=== PATIENT | female | born 1955 | race African-American/Black ===

== ENCOUNTER 2022-04-10 15:38 | Outpatient (CLI) | payer OTHER ==
[2022-04-10 17:18] LABS: BASOPHILS % (AUTO) 0.3 %; EOSINOPHILS # (AUTO) 0.2 10^3/uL (0.0-0.7); EOSINOPHILS % (AUTO) 1.6 %; HGB - HEMOGLOBIN 11.5 g/dL (12.0-16.0); LYMPHOCYTES # (AUTO) 2.5 10^3/uL (1.5-3.5); LYMPHOCYTES % (AUTO) 21.4 %; MEAN CORPUSCULAR HEMOGLOBIN 30.9 pg (27.0-31.0); MEAN CORPUSCULAR HGB CONC 31.9 g/dL (32.0-36.0); MEAN CORPUSCULAR VOLUME 96.8 fL (81.0-99.0); MEAN PLATELET VOLUME 10.7 fL (7.9-10.8); MONOCYTES # (AUTO) 0.9 10^3/uL (0.0-1.0); MONOCYTES % (AUTO) 7.5 %; NEUTROPHILS % (AUTO) 68.9 %; PLT - PLATELET COUNT 284 10^3/uL (130-450); RED BLOOD COUNT 3.72 10^6/uL (4.20-5.40); RED CELL DISTRIBUTION WIDTH 12.5 % (12.0-15.0); WHITE BLOOD COUNT 11.6 x10^3/uL (4.8-10.8)
[2022-04-10 17:26] LABS: ALBUMIN 3.9 g/dL (3.2-5.5); ALBUMIN/GLOBULIN RATIO 1.3 (1.0-2.2); BILIRUBIN,TOTAL 0.5 mg/dL (0.2-1.0); CALCIUM 9.5 mg/dL (8.5-10.3); CREATININE 1.3 mg/dL (0.4-1.0); POTASSIUM 3.4 mmol/L (3.5-5.0)
[2022-04-10 17:44] LABS: THYROID STIMULATING HORMONE 0.88 uIU/mL (0.34-5.60)
[2022-04-10 21:35] LABS: CREATININE,URINE 131.3 mg/dL; MICROALBUM/CREATININE RATIO,UR 14.5 ug/mg (<30.0); MICROALBUMIN,URINE 1.9 mg/dL (0-300.0)
[2022-04-10 21:49] LABS: ESTIMATED AVERAGE GLUCOSE 157 mg/dL (70-100); HEMOGLOBIN A1c% 7.1 % (4.27-6.07)
== END 2022-04-10 15:39 | disposition home or self-care (01) ==
LOC: LAB.N 15:38
PROVIDERS: ATTEND Family Medicine
DX: I10 Essential (primary) hypertension (principal); I63.9 Cerebral infarction, unspecified; G62.9 Polyneuropathy, unspecified; E11.9 Type 2 diabetes mellitus without complications
CPT/HCPCS: 36415; 80053; 82043; 82570; 83036; 84443; 85025

== ENCOUNTER 2022-04-10 15:42 | Outpatient (CLI) | payer OTHER ==
--- NOTE | 2022-04-10 17:28 | XRAY Report ---
PROCEDURE: Shoulder 3 View LT INDICATIONS: FROZEN L SHOULDER TECHNIQUE: 3 views of the shoulder were acquired. COMPARISON: None. FINDINGS: Bones: No fractures or dislocations. No suspicious bony lesions. Visualized ribs appear intact. M ild, irregular joint osteoarthritis. Soft tissues: No suspicious soft tissue calcifications. IMPRESSION: Mild left acromioclavicular joint osteoarthritis. No acute osseous lesion. If symptoms and/or clinical concern for pathology persists, further assessme nt with advanced imaging (CT, MR, bone scan) should be considered. Reviewed by: Roselyn Marie MD, PhD on 04/10/2022 5:27 PM PDT Approved by: Roselyn Marie MD, PhD on 04/10/2022 5:27 PM PDT Station ID: [id number]
== END 2022-04-10 15:43 | disposition home or self-care (01) ==
LOC: DI.N 15:42
PROVIDERS: ATTEND Family Medicine
DX: M75.02 Adhesive capsulitis of left shoulder (principal); M19.012 Primary osteoarthritis, left shoulder; I10 Essential (primary) hypertension; E11.9 Type 2 diabetes mellitus without complications; I63.9 Cerebral infarction, unspecified; G62.9 Polyneuropathy, unspecified
CPT/HCPCS: 36415; 80053; 82043; 82570; 83036; 84443; 85025

== ENCOUNTER 2022-11-15 13:23 | Outpatient (CLI) | payer MEDICAID, OTHER ==
--- NOTE | 2022-11-16 09:27 | Mammography Report ---
BILATERAL DIGITAL SCREENING MAMMOGRAM 3D/2D: 11/15/2022 CLINICAL: Family history of breast cancer. Routine screening. Comparison is made to exams dated: 07/20/2010 mammogram, 07/28/2010 ultrasound, and 07/28/2010 mammogra m - [facility]. Both breasts are heterogeneously dense, which may obscure small masses (category c / 51-75% glandular tissue). There is a focal asymmetry in the left breast central to the nipple posterior depth. No other significant masses, calcifications, or other findings are seen in either breast. IMPRESSION: INCOMPLETE: NEEDS ADDITIONAL IMAGING EVALUATION The focal asymmetry in the left breast is indeterminate. Additional views with possible ultrasound a re recommended. Based on Tyrer-Cuzick model (a risk assessment model), the patient's lifetime risk is 20.3% and her 1 0 year risk is 10.9%. If a patient has an elevated risk, a more comprehensive evaluation should be co nsidered and/or a referral to a genetic counselor. The [place] [employer], [place] [employer], and NCCN Guidelines advise the consideration of Breast MRI as an adjunct to screening mammo graphy in patients whose "Lifetime risk to develop breast cancer" is 20% or higher. This exam was interpreted at Station ID: [id number]. NOTE: For mammograms, a report in lay terms will be sent to the patient. Approximately 15% of breast malignancies will not be visualized mammographically. In the management of a palpable breast mass, a negative mammogram must not discourage biopsy of a clinically suspicious lesion. Electronically Signed By: Angeles Ramos M.D. lk/:11/15/2022 17:13:13 ACR BI-RADS Category 0: Incomplete 3340F PARENCHYMAL PATTERN: (D) - The breast(s) demonstrate(s) heterogeneously dense fibroglandular parenchy ma. BI-RADS CATEGORY: (0) - 0 Mammo and [place] [id number] Immediate follow-up LATERALITY: (B)
== END 2022-11-15 13:24 | disposition home or self-care (01) ==
LOC: DI.N 13:23
PROVIDERS: ATTEND Family Medicine
DX: Z12.31 Encounter for screening mammogram for malignant neoplasm of breast (principal); Z80.3 Family history of malignant neoplasm of breast

== ENCOUNTER 2022-12-11 12:36 | Outpatient (CLI) | payer MEDICARE ==
--- NOTE | 2022-12-12 11:06 | Mammography Report ---
UNILATERAL LEFT DIGITAL DIAGNOSTIC MAMMOGRAM 3D/2D WITH SPOT COMPRESSION: 12/11/2022 CLINICAL: Patient returns today to evaluate an asymmetry in the left breast. Comparison is made to exams dated: 11/15/2022 mammogram, 07/28/2010 mammogram, and 07/20/2010 mammogram - [facility]. The left breast is heterogeneously dense, which may obscure small masses (category c / 51-75% glandul ar tissue). There is an oval mass in the left breast at 5 o'clock posterior depth. There also is an oval mass in the left breast at 5 o'clock posterior depth. No other significant masses or calcifications are seen in the breast. IMPRESSION: INCOMPLETE: NEEDS ADDITIONAL IMAGING EVALUATION The oval mass in the left breast at 5 o'clock posterior depth is consistent with a cyst, a solid mass , or a lymph node and is indeterminate. An ultrasound is recommended. The oval mass in the left breast at 5 o'clock posterior depth is consistent with a cyst, a solid mass , or a lymph node and is indeterminate. An ultrasound is recommended. Based on Tyrer-Cuzick model (a risk assessment model), the patient's lifetime risk is 20.3% and her 1 0 year risk is 10.9%. If a patient has an elevated risk, a more comprehensive evaluation should be co nsidered and/or a referral to a genetic counselor. The [employer] [employer], [employer], and NCCN Guidelines advise the consideration of Breast MRI as an adjunct to screening mammo graphy in patients whose "Lifetime risk to develop breast cancer" is 20% or higher. This exam was interpreted at Station ID: [id number]. NOTE: For mammograms, a report in lay terms will be sent to the patient. Approximately 15% of breast malignancies will not be visualized mammographically. In the management of a palpable breast mass, a negative mammogram must not discourage biopsy of a clinically suspicious lesion. Electronically Signed By: Cameron Miller M.D. acr/:12/11/2022 13:17:42 ACR BI-RADS Category 0: Incomplete 3340F PARENCHYMAL PATTERN: (A) - The breast(s) demonstrate(s) scattered fibroglandular densities. BI-RADS CATEGORY: (0) - 0 Ultrasound [id number] Immediate follow-up LATERALITY: (L)
--- NOTE | 2022-12-12 11:06 | Ultrasound Report ---
LIMITED ULTRASOUND OF LEFT BREAST: 12/11/2022 CLINICAL: Patient returns today to evaluate a focal asymmetry in the left breast. Comparison is made to exams dated: 07/20/2010 mammogram, 07/28/2010 mammogram, 07/28/2010 ultrasound, a nd 11/15/2022 mammogram - [facility]. Color flow ultrasound of the left breast 5 o'clock region was performed. Chopra scale images of the r eal-time examination were reviewed. There is a benign 1.4 cm x 0.9 cm x 0.4 cm normal lymph node in the left breast at 6 o'clock posterio r depth 5 cm from the nipple. This correlates with mammography findings. IMPRESSION: BENIGN There is no sonographic evidence of malignancy. The 1.4 cm x 0.9 cm x 0.4 cm normal lymph node in the left breast is consistent with a lymph node and is benign. A 1 year screening mammogram is recommended. This exam was interpreted at Station ID: [id number]. Electronically Signed By: Cameron Miller M.D. acr/penshama:12/11/2022 16:03:43 Ultrasound BI-RADS: 2 Benign BI-RADS CATEGORY: (2) - 2 RECOMMENDATION: (ANNUAL) - Recommend routine annual screening mammography. [id number] 1 year screening LATERALITY: (B)
== END 2022-12-11 12:37 | disposition home or self-care (01) ==
LOC: DI 12:36
PROVIDERS: ATTEND Family Medicine
DX: R59.0 Localized enlarged lymph nodes (principal)

== ENCOUNTER 2023-03-14 11:02 | Outpatient (CLI) | payer MEDICARE ==
[2023-03-14 17:49] LABS: BASOPHILS % (AUTO) 0.4 %; EOSINOPHILS # (AUTO) 0.2 10^3/uL (0.0-0.7); EOSINOPHILS % (AUTO) 2.2 %; HCT - HEMATOCRIT 38.2 % (37.0-47.0); HGB - HEMOGLOBIN 11.8 g/dL (12.0-16.0); LYMPHOCYTES # (AUTO) 1.9 10^3/uL (1.5-3.5); LYMPHOCYTES % (AUTO) 20.9 %; MEAN CORPUSCULAR HEMOGLOBIN 30.3 pg (27.0-31.0); MEAN CORPUSCULAR HGB CONC 30.9 g/dL (32.0-36.0); MEAN CORPUSCULAR VOLUME 98.2 fL (81.0-99.0); MEAN PLATELET VOLUME 11.4 fL (7.9-10.8); MONOCYTES # (AUTO) 0.7 10^3/uL (0.0-1.0); MONOCYTES % (AUTO) 7.5 %; NEUTROPHILS # (AUTO) 6.3 10^3/uL (1.5-6.6); NEUTROPHILS % (AUTO) 68.7 %; PLT - PLATELET COUNT 275 10^3/uL (130-450); RED BLOOD COUNT 3.89 10^6/uL (4.20-5.40); RED CELL DISTRIBUTION WIDTH 13.1 % (12.0-15.0); WHITE BLOOD COUNT 9.2 x10^3/uL (4.8-10.8)
[2023-03-14 18:14] LABS: % IRON SATURATION 14 % (20-50); ALBUMIN 3.8 g/dL (3.2-5.5); ALBUMIN/GLOBULIN RATIO 1.2 (1.0-2.2); ALKALINE PHOSPHATASE 153 IU/L (42-121); ALT ALANINE AMINOTRANSFERASE 52 IU/L (10-60); AST ASPARTATE AMINOTRANSFERASE 38 IU/L (10-42); BILIRUBIN,TOTAL 0.5 mg/dL (0.2-1.0); BUN - BLOOD UREA NITROGEN 13 mg/dL (6-20); CALCIUM 9.1 mg/dL (8.5-10.3); CARBON DIOXIDE - CO2 27 mmol/L (21-32); CHLORIDE 106 mmol/L (101-111); CHOLESTEROL 143 mg/dL; CREATININE 1.2 mg/dL (0.4-1.0); GFR - MDRD 54 (>89); GLUCOSE 109 mg/dL (70-100); HDL CHOLESTEROL 70 mg/dL; IRON 50 ug/dL (28-170); LDL CHOLESTEROL,CALCULATED 65 mg/dL; LDL/HDL RATIO 0.9 (<4.4); POTASSIUM 3.8 mmol/L (3.5-5.0); SODIUM 142 mmol/L (135-145); TOTAL IRON BINDING CAPACITY 357 ug/dL (250-450); TOTAL PROTEIN 6.9 g/dL (6.7-8.2); TRANSFERRIN 255 mg/dL (192-382); TRIGLYCERIDES 40 mg/dL; VLDL CHOLESTEROL 8 mg/dL
[2023-03-14 18:27] LABS: FERRITIN 35.3 ng/mL (11.0-306.8)
[2023-03-14 18:30] LABS: FOLATE 9.95 ng/mL (5.90 - >24.8)
[2023-03-14 20:12] LABS: ESTIMATED AVERAGE GLUCOSE 128 mg/dL (70-100); HEMOGLOBIN A1c% 6.1 % (4.27-6.07)
== END 2023-03-14 11:03 | disposition home or self-care (01) ==
LOC: LAB.N 11:02
PROVIDERS: ATTEND Family Medicine
DX: E11.9 Type 2 diabetes mellitus without complications (principal); R20.8 Other disturbances of skin sensation
CPT/HCPCS: 36415; 80053; 80061; 82607; 82728; 82746; 83036; 83540; 83721; 84466; 85025

== ENCOUNTER 2023-05-04 13:45 | Outpatient (CLI) | payer MEDICARE | END 2023-05-04 14:00 | disposition home or self-care (01) | LOC: LAB.N 13:45 | PROVIDERS: ATTEND Nurse Practitioner | DX: R30.0 Dysuria (principal) | CPT/HCPCS: 87077; 87086; 87181 ==

== ENCOUNTER 2023-06-13 13:36 | Outpatient (CLI) | payer MEDICARE ==
[2023-06-13 18:00] LABS: CALCIUM 9.2 mg/dL (8.5-10.3); CREATININE 1.3 mg/dL (0.6-1.3); POTASSIUM 3.8 mmol/L (3.5-4.5)
[2023-06-13 18:04] LABS: CREATININE,URINE 101.1 mg/dL; MICROALBUM/CREATININE RATIO,UR 12.9 ug/mg (<30.0); MICROALBUMIN,URINE 1.3 mg/dL
[2023-06-13 21:29] LABS: ESTIMATED AVERAGE GLUCOSE 131 mg/dL (70-100); HEMOGLOBIN A1c% 6.2 % (4.27-6.07)
== END 2023-06-13 13:37 | disposition home or self-care (01) ==
LOC: LAB.N 13:36
PROVIDERS: ATTEND Family Medicine
DX: E11.9 Type 2 diabetes mellitus without complications (principal)
CPT/HCPCS: 36415; 80048; 82043; 82570; 83036

== ENCOUNTER 2023-11-22 06:33 | Day surgery (SDC) | payer MEDICARE ==
[2023-11-22] MEDS: LACTATED RINGERS 1,000 ML IV ONE ×2 (06:41→07:53)
[2023-11-22] MEDS: KETOROLAC 0.45% OPHTH DROPS ONE (06:55)
[2023-11-22] MEDS: PROPARACAINE 0.5% OPHTH DROPS 15 ML ONE (06:55)
[2023-11-22] MEDS ORDERED: EPINEPHrine 1 MG/ML AMP ONE (06:55)
[2023-11-22] MEDS ORDERED: TIMOLOL 0.5% OPHTH DROPS ONE (06:56)
[2023-11-22] MEDS ORDERED: BRIMONIDINE 0.2% OPHTH DROPS 5 ML ONE (06:56)
[2023-11-22] MEDS ORDERED: TRIAMCIN/MOXIFLOX OPHTHALMIC 0.6 ML VIAL IO ONE (06:56)
[2023-11-22] MEDS ORDERED: BSS/LIDOCAINE/EPINEPHRINE 1 ML VIAL ONE (06:56)
[2023-11-22] MEDS: PHENYLEPHRINE 2.5% OPHTH 2 ML DROPS ONE (07:00)
--- NOTE | 2023-11-22 07:17 | ANESTHESIA ---
Pre-Anesthesia VS, & Labs - Diagnosis LEFT CATARACT - Procedure PE IOL OS Vital Signs: Temp Pulse Resp BP Pulse Ox O2 Flow Rate 36.4 C L 78 18 138/77 H 99 11/22/23 06:43 11/22/23 06:43 11/22/23 06:43 11/22/23 06:43 11/22/23 06:43 Height: 5 ft 6 in Weight (kg): 83.3 kg Body Mass Index: 29.6 BMI Classification: Overweight - Is Patient ?: No - Lab Results Current Lab Results: Laboratory Tests 11/22/23 07:13: POC Whole Bld Glucose 149 H Home Medications and Allergies Home Medications: Ambulatory Orders Insulin Glargine [Lantus Solostar] 22 units SUBQ HS 11/21/23 Insulin Lispro [Humalog Kwikpen U-100] 15 unit SUBQ TID 11/21/23 Liraglutide [Victoza 2-Kenroy] 0.6 mg SUBQ DAILY PM 11/21/23 Insulin Glargine [Lantus Solostar] 22 units SUBQ HS 11/21/23 Insulin Lispro [Humalog Kwikpen U-100] 15 unit SUBQ TID 11/21/23 Liraglutide [Victoza 2-Kenroy] 0.6 mg SUBQ DAILY PM 11/21/23 Allergies/Adverse Reactions: Allergies Allergy/AdvReac Type Severity Reaction Status Date / Time Penicillins Allergy Unknown Verified 02/24/15 18:57 Anes History & Medical History - Anesthetic History Anesthesia Complications: reports: No previous complications Family history of Anesthesia Complications: Denies Family history of Malignant Hyperthermia: Denies - Medical History Cardiovascular: reports: Hypertension Pulmonary: reports: None Gastrointestinal: reports: Cholelithiasis Urinary: reports: None Musculoskeletal: reports: None Endocrine/Autoimmune: reports: Type 2 diabetes Skin: reports: None Smoking Status: Never smoker - Surgical History General: reports: Cholecystectomy Gynecologic: reports: section, Hysterectomy Exam General: Alert Dental: WNL, Partials Upper (IN) Mouth Openin Fingerbreadth Neck Mobility: Normal Mallampati classification: II Thyromental Distance: 4-6 cm Plan Anesthesia Type: MAC Consent for Procedure(s) Verified and Reviewed: Yes Code Status: Attempt Resuscitation ASA classification: 3-Severe systemic disease Is this case an emergency?: No
[2023-11-22] MEDS ORDERED: MIDAZOLAM 2 MG/2 ML VIAL ONE (07:21)
[2023-11-22] MEDS: BRIMONIDINE 0.2% OPHTH DROPS 5 ML OPTH ONE (07:38)
[2023-11-22] MEDS: TIMOLOL 0.5% OPHTH DROPS OPTH ONE (07:39)
[2023-11-22] MEDS: BSS/LIDOCAINE/EPINEPHRINE 1 ML SYRINGE IO ONE (07:39)
[2023-11-22] MEDS: TRIAMCIN/MOXIFLOX OPHTHALMIC 0.6 ML VIAL IO ONE (07:39)
[2023-11-22] MEDS: EPINEPHrine 1 MG/ML AMP IR ONE (07:39)
[2023-11-22] MEDS: VANCOMYCIN OPHTH (TOPICAL) 10 MG/ML SYRINGE TOP ONE (07:39)
[2023-11-22] MEDS: PROPARACAINE 0.5% OPHTH DROPS 15 ML LEFTEYE ONE (07:39)
[2023-11-22 08:06] VITALS: BP 123/84; O2SAT 99
--- NOTE | 2023-11-22 08:06 | OPERATIVE REPORT ---
Operative Report - Other Other Information/Narrative: Date of Surgery: 11/22/23 Preop Dx: Visually significant cataract left eye. This was the first cataract surgery. Postop Dx: Same Procedure: Phacoemulsification with posterior chamber intraocular lens implant left eye Surgeon: Dr. Aj Hartman Anesthesia: Monitored anesthesia care Complications: None Operative Indications: This is a 68-year-old F with progressive vision loss in the left eye due to 4+ nuclear sclerotic, 1-2+ cortical, 2+ posterior subcapsular, and vacuolar cataract. Best corrected visual acuity was 20/800 with glare to light perception vision in the left eye. Indications for surgery were: - Overall decrease in vision - Difficulty seeing words on a computer screen - Difficulty reading - Difficulty seeing words, closed captions, or game scores on TV - Difficulty seeing street signs - Difficulty driving in low light or at night - Difficulty driving at night because of headlights from other vehicles - Difficulty with glare or bright lights in any situation - Difficulty tracking a golf ball The patient was consented at length concerning the risks and benefits of cataract surgery after which the patient expressed a desire to proceed with surgery. Operative Procedure: The patient was taken into OR#3 and placed under monitored anesthesia care. A surgical time-out was conducted confirming correct patient, correct procedure, and correct surgical site. The patient was given topical anesthesia and then prepped and draped in the usual sterile fashion. The eye was entered at the 6 and 3 oclock positions. Intracameral Shugarcaine was injected into the anterior chamber followed by a dispersive viscoelastic. A continuous-tear curvilinear capsulorhexis was performed with moderately poor red reflex. The nucleus was hydrodissected and phacoemulsified. This was a very large and very dense cataract requiring a significant amount of phaco power to remove it. There also appears to be zonular dehiscense nasally and once the lens was out a nasal rhexis radialization was noted. No vitreous presented, however. Cortical cleanup was not performed due to the questionable stability of the capsule. A cohesive viscoelastic was injected into the capsular bag and a 24.0 diopter intraocular lens was inserted into the bag and the IOL centered well. Infusion and aspiration were used to evacuate the viscoelastic materials from the eye. The wounds were hydrated and the eye inflated to physiologic pressure using balanced salt solution. Approximately 0.25ml of a mixture of triamcinolone and moxifloxacin was injected trans-sclerally into the vitreous in the inferotemporal quadrant using a 30 gauge cannula. An additional 0.25ml of a mixture of triamcinolone and moxifloxacin was injected subconjunctivally in the superior quadrant for infection and inflammation prophylaxis. Wound integrity was checked with Weck-Jaimee sponges. The patient was taken from the operating room in good condition and given post-op instructions.
--- NOTE | 2023-11-22 11:14 | ANESTHESIA POST OP EVALUATION ---
Anesthesia Post Eval - Post Anesthesia Eval Vitals: Last Vital Signs Temp 36.1 C L 11/22/23 08:05 Pulse 69 11/22/23 08:05 Resp 15 11/22/23 08:05 BP 123/84 H 11/22/23 08:05 Pulse Ox 99 11/22/23 08:05 O2 Flow Rate CV Function Including HR & BP: Stable Pain Control: Satisfactory Nausea & Vomiting: Negative Mental Status: Baseline Respiratory Status: Airway Patent Hydration Status: Satisfactory Anesthesia Complications: None
== END 2023-11-22 06:34 | disposition home or self-care (01) ==
LOC: SDS 06:33
PROVIDERS: ATTEND Ophthalmology
DX: H25.812 Combined forms of age-related cataract, left eye (principal); E11.36 Type 2 diabetes mellitus with diabetic cataract; Z79.85 Long-term (current) use of injectable non-insulin antidiabetic drugs; Z79.4 Long term (current) use of insulin
CPT/HCPCS: 66984; A9270; J3490; J7120

== ENCOUNTER 2023-12-25 14:12 | Outpatient (CLI) | payer MEDICARE ==
[2023-12-25 14:49] LABS: CREATININE 1.2 mg/dL (0.6-1.3); POTASSIUM 3.7 mmol/L (3.5-4.5)
[2023-12-25 15:50] LABS: CREATININE,URINE 223.1 mg/dL; MICROALBUM/CREATININE RATIO,UR 49.8 ug/mg (<30.0); MICROALBUMIN,URINE 11.1 mg/dL
[2023-12-25 21:29] LABS: ESTIMATED AVERAGE GLUCOSE 146 mg/dL (70-100); HEMOGLOBIN A1c% 6.7 % (4.27-6.07)
== END 2023-12-25 14:13 | disposition home or self-care (01) ==
LOC: LAB 14:12
PROVIDERS: ATTEND Family Medicine
DX: I10 Essential (primary) hypertension (principal); E11.3211 Type 2 diabetes mellitus with mild nonproliferative diabetic retinopathy with macular edema, right eye; I48.0 Paroxysmal atrial fibrillation; K21.9 Gastro-esophageal reflux disease without esophagitis
CPT/HCPCS: 36415; 80048; 82043; 82570; 83036

== ENCOUNTER 2024-01-08 08:00 | Outpatient (CLI) | payer MEDICARE | END 2024-01-08 23:59 | disposition home or self-care (01) | LOC: LAB.R 08:00 | PROVIDERS: ATTEND Podiatrist | DX: E11.622 Type 2 diabetes mellitus with other skin ulcer (principal) | CPT/HCPCS: 87070; 87205 ==

== ENCOUNTER 2024-01-08 14:30 | Outpatient (CLI) | payer MEDICARE ==
[2024-01-08 14:55] LABS: CRP - C-REACTIVE PROTEIN < 0.5 mg/dL (<0.5)
[2024-01-08 15:07] LABS: GLUCOSE 53 mg/dL (74-104)
[2024-01-08 16:02] LABS: BASOPHILS % (AUTO) 0.4 %; EOSINOPHILS # (AUTO) 0.2 10^3/uL (0.0-0.7); EOSINOPHILS % (AUTO) 2.1 %; HCT - HEMATOCRIT 38.8 % (37.0-47.0); HGB - HEMOGLOBIN 11.9 g/dL (12.0-16.0); LYMPHOCYTES # (AUTO) 1.9 10^3/uL (1.5-3.5); LYMPHOCYTES % (AUTO) 17.7 %; MEAN CORPUSCULAR HEMOGLOBIN 29.6 pg (27.0-31.0); MEAN CORPUSCULAR HGB CONC 30.7 g/dL (32.0-36.0); MEAN CORPUSCULAR VOLUME 96.5 fL (81.0-99.0); MEAN PLATELET VOLUME 9.8 fL (7.9-10.8); MONOCYTES # (AUTO) 0.9 10^3/uL (0.0-1.0); MONOCYTES % (AUTO) 8.6 %; NEUTROPHILS # (AUTO) 7.7 10^3/uL (1.5-6.6); NEUTROPHILS % (AUTO) 70.9 %; PLT - PLATELET COUNT 270 10^3/uL (130-450); RED BLOOD COUNT 4.02 10^6/uL (4.20-5.40); RED CELL DISTRIBUTION WIDTH 13.2 % (12.0-15.0); WHITE BLOOD COUNT 10.9 x10^3/uL (4.8-10.8)
[2024-01-08 17:11] LABS: BUN - BLOOD UREA NITROGEN 19 mg/dL (6-20); CALCIUM 10.3 mg/dL (8.5-10.3); CARBON DIOXIDE - CO2 33 mmol/L (21-32); CHLORIDE 103 mmol/L (101-111); CREATININE 1.3 mg/dL (0.6-1.3); GFR - MDRD 49 (>89); POTASSIUM 3.7 mmol/L (3.5-4.5); SODIUM 140 mmol/L (135-145)
== END 2024-01-08 14:31 | disposition home or self-care (01) ==
LOC: LAB 14:30
PROVIDERS: ATTEND Podiatrist
DX: E11.622 Type 2 diabetes mellitus with other skin ulcer (principal)
CPT/HCPCS: 36415; 80048; 85025; 86140; 87070; 87205

== ENCOUNTER 2024-05-20 08:39 | Outpatient (CLI) | payer MEDICARE ==
[2024-05-20 12:40] LABS: BASOPHILS % (AUTO) 0.3 %; EOSINOPHILS # (AUTO) 0.2 10^3/uL (0.0-0.7); EOSINOPHILS % (AUTO) 2.5 %; HCT - HEMATOCRIT 36.4 % (37.0-47.0); HGB - HEMOGLOBIN 11.5 g/dL (12.0-16.0); LYMPHOCYTES # (AUTO) 2.8 10^3/uL (1.5-3.5); LYMPHOCYTES % (AUTO) 29.7 %; MEAN CORPUSCULAR HEMOGLOBIN 31.3 pg (27.0-31.0); MEAN CORPUSCULAR HGB CONC 31.6 g/dL (32.0-36.0); MEAN CORPUSCULAR VOLUME 98.9 fL (81.0-99.0); MEAN PLATELET VOLUME 10.4 fL (7.9-10.8); MONOCYTES # (AUTO) 0.7 10^3/uL (0.0-1.0); MONOCYTES % (AUTO) 7.3 %; NEUTROPHILS # (AUTO) 5.6 10^3/uL (1.5-6.6); PLT - PLATELET COUNT 265 10^3/uL (130-450); RED BLOOD COUNT 3.68 10^6/uL (4.20-5.40); RED CELL DISTRIBUTION WIDTH 13.2 % (12.0-15.0); WHITE BLOOD COUNT 9.3 x10^3/uL (4.8-10.8)
[2024-05-20 12:50] LABS: ALBUMIN 4.1 g/dL (3.2-5.5); ALBUMIN/GLOBULIN RATIO 1.6 (1.0-2.2); ALKALINE PHOSPHATASE 143 IU/L (42-121); ALT ALANINE AMINOTRANSFERASE 37 IU/L (10-60); AST ASPARTATE AMINOTRANSFERASE 29 IU/L (10-42); BILIRUBIN,TOTAL 0.4 mg/dL (0.2-1.0); BUN - BLOOD UREA NITROGEN 19 mg/dL (6-20); CALCIUM 9.8 mg/dL (8.5-10.3); CARBON DIOXIDE - CO2 32 mmol/L (21-32); CHLORIDE 107 mmol/L (101-111); CHOL/HDL RATIO 2.4 (<4.4); CHOLESTEROL 144 mg/dL; CREATININE 1.3 mg/dL (0.6-1.3); GFR - MDRD 49 (>89); GLUCOSE 122 mg/dL (74-104); HDL CHOLESTEROL 60 mg/dL; LDL CHOLESTEROL,CALCULATED 72 mg/dL; LDL/HDL RATIO 1.2 (<4.4); POTASSIUM 3.5 mmol/L (3.5-4.5); SODIUM 143 mmol/L (135-145); TOTAL PROTEIN 6.7 g/dL (6.4-8.9); TRIGLYCERIDES 61 mg/dL; VLDL CHOLESTEROL 12 mg/dL
[2024-05-20 12:58] LABS: CREATININE,URINE 234.3 mg/dL; MICROALBUM/CREATININE RATIO,UR 7.7 ug/mg (<30.0); MICROALBUMIN,URINE 1.8 mg/dL
[2024-05-20 13:04] LABS: THYROID STIMULATING HORMONE 2.12 uIU/mL (0.34-5.60)
[2024-05-20 13:27] LABS: ESTIMATED AVERAGE GLUCOSE 123 mg/dL (70-100); HEMOGLOBIN A1c% 5.9 % (4.27-6.07)
== END 2024-05-20 08:40 | disposition home or self-care (01) ==
LOC: LAB.N 08:39
PROVIDERS: ATTEND Family Medicine
DX: I10 Essential (primary) hypertension (principal); I48.91 Unspecified atrial fibrillation; E11.3211 Type 2 diabetes mellitus with mild nonproliferative diabetic retinopathy with macular edema, right eye; Z86.79 Personal history of other diseases of the circulatory system; E11.43 Type 2 diabetes mellitus with diabetic autonomic (poly)neuropathy; K31.84 Gastroparesis; K21.9 Gastro-esophageal reflux disease without esophagitis; E78.5 Hyperlipidemia, unspecified; Z79.4 Long term (current) use of insulin
CPT/HCPCS: 36415; 80053; 80061; 82043; 82570; 83036; 83721; 84443; 85025